=== PATIENT | male | born 1935 | race Caucasian/White ===

== ENCOUNTER 2017-07-29 01:18 | Emergency (ER) | payer BC, MEDICARE ==
[2017-07-29] MEDS ORDERED: NORMAL SALINE 500 ML IV ONE (01:30)
--- NOTE | 2017-07-29 02:14 | ER Document Report ---
ED General - General Stated Complaint: NAUSEA,VOMITING,DIARRHEA Time Seen by Provider: 07/29/17 01:22 Notes: Patient is an 81-year-old male who presents with complaint of onset of fatigue and vomiting started tonight. He said he felt well throughout the day. His only medical problem is MS. Takes medications for this. Is been no recent changes in medications. He self caths because of the neurogenic bladder from MS. Denies any recent dysuria or fevers or cloudy urine. He was given Zofran by the paramedics and says nausea is now gone. He did not have any diarrhea. He denies any chest pain or shortness of breath. No abdominal pain. No other complaints this time. - Related Data Allergies/Adverse Reactions: No Known Allergies Allergy (Unverified 07/29/17 03:24) Past Medical History - Social History Smoking Status: Former Smoker Frequency of alcohol use: None Drug Abuse: None Family History: Reviewed & Not Pertinent Review of Systems - Review of Systems Notes: My Normal Review Basic REVIEW OF SYSTEMS: CONSTITUTIONAL : Had chills and felt weak. EENT: Denies eye, ear, throat, or mouth pain or symptoms. Denies nasal or sinus congestion. CARDIOVASCULAR: Denies chest pain. RESPIRATORY: Denies cough, cold, or chest congestion. Denies shortness of breath, difficulty breathing, or wheezing. GASTROINTESTINAL: Denies abdominal pain. vomiting GENITOURINARY: Denies difficulty urinating, painful urination, burning, frequency, or blood in urine. MUSCULOSKELETAL: Denies neck or back pain or joint pain or swelling. SKIN: Denies rash or skin lesions. NEUROLOGICAL: Denies altered mental status or loss of consciousness. Denies headache. Denies weakness or paralysis or loss of use of either side. Denies problems with gait or speech. Denies sensory or motor loss. ALL OTHER SYSTEMS REVIEWED AND NEGATIVE. Physical Exam - Vital signs Vitals: Temp Pulse Resp BP Pulse Ox 98.5 F 85 16 122/62 97 07/29/17 02:00 07/29/17 02:00 07/29/17 02:00 07/29/17 02:00 07/29/17 02:00 - Notes Notes: General Appearance: Well nourished, alert, cooperative, no acute distress, no obvious discomfort. Well-appearing Vitals: reviewed, See vital signs table. Head: no swelling or tenderness to the head Eyes: PERRL, EOMI, Conjuctiva clear Mouth: No decreasd moisture Lungs: No wheezing, No rales, No rhonci, No accessory muscle use, good air exchange bilaterally. Heart: Normal rate, Regular rythm, No murmur, no rub Abdomen: Normal BS, soft, No rigidity, No abdominal tenderness, No guarding, no rebound, no abdominal masses, no organomegaly Extremities: strength 5/5 in all extremities, good pulses in all extremities, no swelling or tenderness in the extremities, no edema. Skin: warm, dry, appropriate color, no rash Neuro: speech clear, oriented x 3, normal affect, responds appropriately to questions. Course - Re-evaluation Re-evalutation: 07/29/17 04:59 Patient is feeling much improved. He looks very well. Is sitting up at bedside and upbeat and smiling. Denies any pain. Urinalysis shows that he does have a bladder infection which would most likely causes weakness and vomiting bad tonight. His nausea is gone and he feels and looks well. I will give him a dose of Rocephin and reassess. If he continues to look very well and has normal vital signs, he will be discharged home on antibiotic. 07/29/17 06:20 On reevaluation patient continues to look very well. I talked to him and his and his daughter. Informed him that even though he looks and feels well now he must have a very low threshold to return to the ER if he develops any fevers, feels like he is getting more weak, has recurrent vomiting, or if he feels that he is worsening in any way. Patient and family agree with plan and he will be discharged home. Dictation of this chart was performed using voice recognition software; therefore, there may be some unintended grammatical errors. - Vital Signs Vital signs: Temp Pulse Resp BP Pulse Ox 98.5 F 91 16 112/64 97 07/29/17 02:00 07/29/17 05:30 07/29/17 05:30 07/29/17 05:30 07/29/17 05:30 - Laboratory Result Diagrams: 07/29/17 02:05 07/29/17 02:05 Laboratory results interpreted by me: 07/29/17 07/29/17 07/29/17 02:05 02:05 03:04 WBC 11.7 H RBC 3.93 L Hgb 12.4 L Hct 36.0 L Seg Neuts % (Manual) 83 H Band Neutrophils % 1 L Lymphocytes % (Manual) 7 L Abs Neuts (Manual) 9.8 H BUN 21 H Urine Protein 30 H Urine Ketones TRACE H Urine Blood MODERATE H Urine Urobilinogen 2.0 H Ur Leukocyte Esterase LARGE H - EKG Interpretation by Me Additional EKG results interpreted by me: 07/29/17 02:13 EKG is reviewed and interpreted by me. EKG shows normal sinus rhythm with rate of [address] segment elevation or depression. No ischemic T-wave inversions. LA interval, QRS duration, QTc intervals are within normal range. No old EKG available for comparison. Discharge - Discharge Clinical Impression: UTI (urinary tract infection) Qualifiers: Urinary tract infection type: site unspecified Hematuria presence: without hematuria Qualified Code(s): N39.0 - Urinary tract infection, site not specified Vomiting Qualifiers: Vomiting type: unspecified Vomiting Intractability: unspecified Nausea presence : with nausea Qualified Code(s): R11.2 - Nausea with vomiting, unspecified Condition: Good Disposition: HOME, SELF-CARE Additional Instructions: Please return to the ER immediately if you have recurrent vomiting, any fevers, feel weak, or feel like you are worsening n any way. Take the antibiotics as prescribed. You can take the nausea medicine (zofran) as needed up to one tablet every 4 hours. Prescriptions: Cephalexin Monohydrate [Keflex 500 mg Capsule] 500 mg PO Q6H 7 Days capsule Referrals: MANDY GUTIERRES MD [Primary Care Provider] - 07/31/17 ()
[2017-07-29 02:29] LABS: HEMOGLOBIN 12.4 g/dL (13.5-17.0); MEAN CORPUSCULAR HEMOGLOBIN 31.5 pg (27.0-33.4); MEAN CORPUSCULAR HGB CONC 34.3 g/dL (32.0-36.0); MEAN CORPUSCULAR VOLUME 92 fl (80-97); PLATELET COUNT 289 10^3/uL (150-450); RED BLOOD COUNT 3.93 10^6/uL (4.35-5.55); WHITE BLOOD COUNT 11.7 10^3/uL (4.0-10.5)
[2017-07-29 02:45] LABS: ABSOLUTE LYMPHOCYTES# (MANUAL) 0.8 10^3/uL (0.5-4.7); ABSOLUTE MONOCYTES # (MANUAL) 1.1 10^3/uL (0.1-1.4); ABSOLUTE NEUTROPHILS# (MANUAL) 9.8 10^3/uL (1.7-8.2); BAND NEUTROPHILS % (MANUAL) 1 % (3-5); BASOPHILS % (MANUAL) 0 % (0-2); EOSINOPHILS % (MANUAL) 0 % (0-6); LYMPHOCYTES % (MANUAL) 7 % (13-45); MONOCYTES % (MANUAL) 9 % (3-13); SEGMENTED NEUTROPHILS % (MAN) 83 % (42-78); TOTAL CELLS COUNTED 100
[2017-07-29 02:46] LABS: PLATELET COMMENT ADEQUATE; PLATELET LARGE PRESENT; SCHISTOCYTES SLIGHT; TOXIC GRANULATION 1+
[2017-07-29 02:55] LABS: ALANINE AMINOTRANSFERASE 27 U/L (21-72); ALBUMIN 3.8 g/dL (3.5-5.0); ALKALINE PHOSPHATASE 91 U/L (38-126); ANION GAP 11 (5-19); ASPARTATE AMINO TRANSFERASE 17 U/L (17-59); BILIRUBIN,DIRECT 0.3 mg/dL (0.0-0.4); BILIRUBIN,TOTAL 0.4 mg/dL (0.2-1.3); BLOOD UREA NITROGEN 21 mg/dL (7-20); CALCIUM 9.2 mg/dL (8.4-10.2); CARBON DIOXIDE 27 mmol/L (22-30); CHLORIDE 105 mmol/L (98-107); GLUCOSE 107 mg/dL (75-110); POTASSIUM 3.9 mmol/L (3.6-5.0); SODIUM 143.1 mmol/L (137-145); TOTAL PROTEIN 6.6 g/dL (6.3-8.2)
[2017-07-29 04:34] LABS: APPEARANCE,URINE CLOUDY; BILIRUBIN,URINE NEGATIVE (NEGATIVE); COLOR,URINE YELLOW; GLUCOSE, URINE NEGATIVE (NEGATIVE); KETONES,URINE TRACE mg/dL (NEGATIVE); LEUKOCYTE ESTERASE,URINE LARGE (NEGATIVE); NITRITE,URINE NEGATIVE (NEGATIVE); PROTEIN,URINE 30 mg/dL (NEGATIVE); URINE SPECIFIC GRAVITY 1.017
[2017-07-29] MEDS ORDERED: CEFTRIAXONE INJ 1000 MG VIAL IV ONE (04:58)
[2017-07-29 06:05] VITALS: BP 112/64
--- NOTE | 2017-07-29 09:03 | EKG REPORT ---
SEVERITY:- NORMAL ECG - SINUS RHYTHM : Confirmed by: Kam Duran MD 29-Jul-2017 09:01:56
== END 2017-07-29 06:35 | disposition home or self-care (01) ==
LOC: ER 01:18
DX: N39.0 Urinary tract infection, site not specified (principal); R11.2 Nausea with vomiting, unspecified; R19.7 Diarrhea, unspecified; Z87.891 Personal history of nicotine dependence
CPT/HCPCS: 93005; 99284; 96361; 96365; 36415; 87086; 85025; 87088; 80053; 81001; 84484; 87186; 93010; J0696; J7040

== ENCOUNTER 2017-09-15 19:16 | Emergency (ER) | payer MEDICARE, BC ==
[2017-09-15 20:45] LABS: HEMATOCRIT 36.6 % (37.9-51.0); MEAN CORPUSCULAR HEMOGLOBIN 32.3 pg (27.0-33.4); MEAN CORPUSCULAR HGB CONC 35.4 g/dL (32.0-36.0); MEAN CORPUSCULAR VOLUME 91 fl (80-97); PLATELET COUNT 277 10^3/uL (150-450); RED BLOOD COUNT 4.01 10^6/uL (4.35-5.55); RED CELL DISTRIBUTION WIDTH 12.7 % (11.5-14.0); WHITE BLOOD COUNT 10.8 10^3/uL (4.0-10.5)
[2017-09-15 20:50] LABS: APPEARANCE,URINE CLOUDY; BILIRUBIN,URINE NEGATIVE (NEGATIVE); COLOR,URINE YELLOW; GLUCOSE, URINE NEGATIVE (NEGATIVE); KETONES,URINE 20 mg/dL (NEGATIVE); LEUKOCYTE ESTERASE,URINE LARGE (NEGATIVE); NITRITE,URINE POSITIVE (NEGATIVE); PROTEIN,URINE NEGATIVE (NEGATIVE); URINE SPECIFIC GRAVITY 1.018
[2017-09-15 20:59] LABS: ALANINE AMINOTRANSFERASE 28 U/L (21-72); ALBUMIN 3.9 g/dL (3.5-5.0); ALKALINE PHOSPHATASE 82 U/L (38-126); ANION GAP 12 (5-19); ASPARTATE AMINO TRANSFERASE 22 U/L (17-59); BILIRUBIN,DIRECT 0.3 mg/dL (0.0-0.4); BILIRUBIN,TOTAL 0.6 mg/dL (0.2-1.3); BLOOD UREA NITROGEN 18 mg/dL (7-20); CALCIUM 8.8 mg/dL (8.4-10.2); CARBON DIOXIDE 25 mmol/L (22-30); CHLORIDE 102 mmol/L (98-107); GLUCOSE 87 mg/dL (75-110); POTASSIUM 3.8 mmol/L (3.6-5.0); SODIUM 138.5 mmol/L (137-145); TOTAL PROTEIN 6.8 g/dL (6.3-8.2)
[2017-09-15] MEDS ORDERED: CEFTRIAXONE 1 GM/D5W RTU 1 GM/50 ML RTUPB IV ONE (21:00)
[2017-09-15 21:04] LABS: ABSOLUTE LYMPHOCYTES# (MANUAL) 0.4 10^3/uL (0.5-4.7); ABSOLUTE MONOCYTES # (MANUAL) 0.5 10^3/uL (0.1-1.4); ABSOLUTE NEUTROPHILS# (MANUAL) 9.8 10^3/uL (1.7-8.2); BASOPHILS % (MANUAL) 0 % (0-2); EOSINOPHILS % (MANUAL) 0 % (0-6); LYMPHOCYTES % (MANUAL) 4 % (13-45); MONOCYTES % (MANUAL) 5 % (3-13); RBC MORPHOLOGY COMMENT NORMO-CYTIC/CHROMIC; SEGMENTED NEUTROPHILS % (MAN) 91 % (42-78); TOTAL CELLS COUNTED 100
[2017-09-15 21:05] LABS: PLATELET COMMENT ADEQUATE
[2017-09-15] MEDS ORDERED: CEPHALEXIN 500 MG CAPSULE PO ONE (21:13)
--- NOTE | 2017-09-15 21:13 | ER Document Report ---
ED General - General Chief Complaint: Tremor Stated Complaint: TREMORS Time Seen by Provider: 09/15/17 19:40 Notes: Patient is a well appearing 82-year-old male who presents with chief complaint of possible urinary tract infection. Patient reports that he was seen in the emergency department 6 weeks ago for similar symptoms to include mild weakness as well as mild tremors and he was diagnosed with a UTI. Patient reports that he has not had any fever, nausea or vomiting. Patient denies any pain whatsoever. TRAVEL OUTSIDE OF THE [place] IN LAST 30 DAYS: No - Related Data Allergies/Adverse Reactions: No Known Allergies Allergy (Verified 09/15/17 19:25) Past Medical History - General Information source: Patient - Social History Smoking Status: Never Smoker Frequency of alcohol use: None Drug Abuse: None Family History: Reviewed & Not Pertinent Renal/ Medical History: Reports: Other - Neurogenic bladder. Denies: Hx Peritoneal Dialysis Musculoskeletal Medical History: Reports Hx Multiple Sclerosis Surgical Hx: Negative - Immunizations Hx Diphtheria, Pertussis, Tetanus Vaccination: Yes Review of Systems - Review of Systems Notes: REVIEW OF SYSTEMS: CONSTITUTIONAL : Had chills and felt weak. EENT: Denies eye, ear, throat, or mouth pain or symptoms. Denies nasal or sinus congestion. CARDIOVASCULAR: Denies chest pain. RESPIRATORY: Denies cough, cold, or chest congestion. Denies shortness of breath, difficulty breathing, or wheezing. GASTROINTESTINAL: Denies abdominal pain. vomiting GENITOURINARY: Denies difficulty urinating, painful urination, burning, frequency, or blood in urine. MUSCULOSKELETAL: Denies neck or back pain or joint pain or swelling. SKIN: Denies rash or skin lesions. NEUROLOGICAL: Denies altered mental status or loss of consciousness. Denies headache. Denies weakness or paralysis or loss of use of either side. Denies problems with gait or speech. Denies sensory or motor loss. ALL OTHER SYSTEMS REVIEWED AND NEGATIVE. Physical Exam - Vital signs Vitals: Temp Pulse Resp BP Pulse Ox 98.6 F 96 40 H 132/68 H 97 09/15/17 19:30 09/15/17 19:30 09/15/17 19:30 09/15/17 19:30 09/15/17 19:30 - Notes Notes: General Appearance: Well nourished, alert, cooperative, no acute distress, no obvious discomfort. Well-appearing Vitals: reviewed, See vital signs table. Head: no swelling or tenderness to the head Eyes: PERRL, EOMI, Conjuctiva clear Mouth: No decreasd moisture Lungs: No wheezing, No rales, No rhonci, No accessory muscle use, good air exchange bilaterally. Heart: Normal rate, Regular rythm, No murmur, no rub Abdomen: Normal BS, soft, No rigidity, No abdominal tenderness, No guarding, no rebound, no abdominal masses, no organomegaly Extremities: strength 5/5 in all extremities, good pulses in all extremities, no swelling or tenderness in the extremities, no edema. Skin: warm, dry, appropriate color, no rash Neuro: speech clear, oriented x 3, normal affect, responds appropriately to questions. Course - Re-evaluation Re-evalutation: 09/15/17 21:20 On initial examination, patient is a well appearing 82-year-old male who presents with chief complaint of possible urinary tract infection. Patient reports that he was seen in the emergency department 6 weeks ago for similar symptoms to include mild weakness as well as mild tremors and he was diagnosed with a UTI. He looks very well. Is sitting up at bedside and upbeat, joking and smiling. Denies any pain. Urinalysis shows that he does have a bladder infection which would most likely caused his weakness and tremor tonight. CBC and comprehensive metabolic panel without any acute findings. He has not had any fever, nausea or vomiting and he feels and looks well. I will give him a dose of Rocephin and reassess. If he continues to look very well and has normal vital signs, he will be discharged home on antibiotic. On reevaluation patient continues to look very well. Discussion was had with patient as well as his and his daughter. Informed him that even though he looks and feels well now he must have a very low threshold to return to the ER if he develops any fevers, feels like he is getting more weak, starts vomiting, or if he feels that he is worsening in any way. Patient and family agree with plan and he will be discharged home. Patient encouraged to follow-up with a urologist as this is his second urinary tract infection in a span of 6 weeks. Patient and report that they will call Dr. Weinberg Sunday morning to set up an appointment. Copies of patient's urinalysis from this visit as well as previous visit will be given. Dictation of this chart was performed using voice recognition software; therefore, there may be some unintended grammatical errors. - Vital Signs Vital signs: Temp Pulse Resp BP Pulse Ox 98.6 F 96 13 111/61 96 09/15/17 19:30 09/15/17 19:30 09/15/17 22:01 09/15/17 22:01 09/15/17 22:01 - Laboratory Result Diagrams: 09/15/17 20:27 09/15/17 20:27 Laboratory results interpreted by me: 09/15/17 09/15/17 20:27 20:27 WBC 10.8 H RBC 4.01 L Hgb 13.0 L Hct 36.6 L Seg Neuts % (Manual) 91 H Lymphocytes % (Manual) 4 L Abs Neuts (Manual) 9.8 H Abs Lymphs (Manual) 0.4 L Urine Ketones 20 H Urine Nitrite POSITIVE H Urine Urobilinogen 2.0 H Ur Leukocyte Esterase LARGE H Discharge - Discharge Clinical Impression: Urinary tract infection Qualifiers: Urinary tract infection type: site unspecified Hematuria presence: with hematuria Qualified Code(s): N39.0 - Urinary tract infection, site not specified Condition: Stable Disposition: HOME, SELF-CARE Additional Instructions: URINARY TRACT INFECTION: Your evaluation indicates that you have a urinary tract infection. This is due to germs growing in the bladder. This is a common problem. This infection usually responds quickly to antibiotics. Your antibiotic should be taken exactly as prescribed. Drink plenty of fluids -- three to four quarts a day. Occasionally, a bladder anesthetic will be prescribed to help stop the feeling of urgency until the antibiotic has a chance to clear the infection. This may cause your urine to be dark orange. Certain urine infections require a culture. If the doctor obtained a culture, the results will be back in two days. You should call to see if a change in treatment is needed. A repeat urinalysis after you finish treatment is often recommended. The physician will let you know if further testing is required. Call the doctor if you develop fever, chills, flank pain, inability to urinate, or blood in the urine. ANTIBIOTIC THERAPY: You have been given an antibiotic prescription. It's important that you take all the medication, unless instructed otherwise by your physician. Failure to complete the entire course can result in relapse of your condition. Common side effects of antibiotics include nausea, intestinal cramping, or diarrhea. Women may develop vaginal yeast infections, and babies can get yeast (thrush) in the mouth following the use of antibiotics. Contact your physician if you develop significant side effects from this medication. Allergy to this antibiotic can result in hives, wheezing, faintness, or itching. If symptoms of allergy occur, stop the medication and call the doctor. CEPHALEXIN: The antibiotic you've been prescribed is a member of the cephalosporin class. This type of antibiotic covers a wide variety of infections, including those of the skin, lungs, and urinary tract. It's useful for staph infections. This antibiotic is slightly similar to the penicillin family. In rare cases , a person who is allergic to penicillin will also be allergic to this medication. If you have had a severe allergic reaction to penicillin, and have not taken this antibiotic since that time, notify your doctor. Antibiotics which cover many germs ("broad spectrum" antibiotics) are more likely to cause diarrhea or "yeast" infections. Women prone to vaginal yeast problems may suffer an attack after taking this antibiotic. In infants, oral thrush (white spots "stuck" on the cheek) or yeast diaper rash may result. See your doctor if these problems occur. Call at once if you develop itching, hives , shortness of breath, or lightheadedness. FOLLOW-UP CARE: If you have been referred to a physician for follow-up care, call the physician s office for an appointment as you were instructed or within the next two days. If you experience worsening or a significant change in your symptoms, notify the physician immediately or return to the Emergency Department at any time for re-evaluation. Please take all antibiotics as prescribed. Please call and make an appointment with the urologist, call Sunday. Please return to the emergency department immediately if you develop any worsening of your symptoms to include development of fever, flank pain, abdominal pain or any alteration in your mental status. Prescriptions: Cephalexin Monohydrate [Keflex 500 mg Capsule] 500 mg PO Q6H 7 Days #28 capsule Referrals: MANDY GUTIERRES MD [Primary Care Provider] - Follow up as needed CRISTIANO WEINBERG MD [NO LOCAL MD] - Follow up as needed
[2017-09-15] MEDS ORDERED: CEFTRIAXONE INJ 1000 MG VIAL ONE (21:34)
[2017-09-16 06:37] VITALS: BP 111/61
== END 2017-09-15 22:22 | disposition home or self-care (01) ==
LOC: ER 19:16
DX: N30.91 Cystitis, unspecified with hematuria (principal); R53.1 Weakness; R25.1 Tremor, unspecified; R68.83 Chills (without fever)
CPT/HCPCS: 99285; 96372; 36415; 87086; 85025; 87088; 80053; 81001; 87186; A9270; J0696

== ENCOUNTER → 2017-09-28 | Outpatient (CLI) | payer MEDICARE, BC ==
--- NOTE | 2017-09-28 11:30 | RADIOLOGY REPORT (SQ) ---
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 TECHNIQUE: Dynamic and static grayscale images acquired of the kidneys and bladder and recorded on P ACS. Additional selected color Doppler and spectral images recorded. LIMITATIONS: None. FINDINGS: RIGHT KIDNEY: 9 cm Normal echogenicity. Multiple cysts. Largest is 3.6 cm. No hydr onephrosis. No calcifications. LEFT KIDNEY: 9.5 cm Normal echogenicity. Simple cyst 1.7 cm. No hydronephrosis. No calcifica tions. BLADDER: No masses. OTHER FINDINGS: No other significant finding. IMPRESSION: Multiple cysts. No hydronephrosis. TECHNICAL DOCUMENTATION: JOB ID: [id number] [employer]- All Rights Reserved Reading location - IP/workstation name: [email or web address]
== END ==
LOC: RAD 10:35
PROVIDERS: ATTEND Urology
DX: N31.9 Neuromuscular dysfunction of bladder, unspecified (principal)
CPT/HCPCS: 76770